=== PATIENT | female | born 1990 | race Caucasian/White ===

== ENCOUNTER 2019-08-19 10:09 | Outpatient (REF) | payer BC, SELFPAY ==
--- NOTE | 2019-08-19 08:45 | PAPFT_PTH ---
PATIENT: Betzy Levy LOC: [facility] U#:[id number] AGE/SX: 28/F ROOM: RE08/19/[address]: Jessica Carter : 1990 BED: DIS: 08/19/2019 SPEC #: [id number] RECD: 08/20/19 12:48 STATUS: CELINE RENellie #: [id number] IZA: 08/19/19 08:[address]: Jessica Carter DEPT: [facility] Cytology RECD BY: Amy Waters Tissues: 1 - CX/ENDOCX FOR PAP SMEARS Procedures: PAP THIN PREP/[facility] Screening Comments: [id number] (CHLAMYDIA/GC)
[2019-08-19 12:11] LABS: Anion Gap 7.9 mmol/L (3-11); BUN 13 mg/dL (7-18); CO2 27.1 mmol/L (21.0-32.0); CREATININE 0.58 mg/dL (0.55-1.02); Calcium 8.8 mg/dL (8.5-10.1); Chloride 105 mmol/L (98-107); Glucose 80 mg/dL (74-106); HCT 38.5 % (36.0-46.0); HGB 12.9 g/dL (12.0-15.5); Mean Corp. HGB Concentration 33.5 g/dL (32.0-36.0); Mean Corpuscular Hemoglobin 30.1 pg (27.0-33.0); Mean Corpuscular Volume 89.7 fL (80-95); Mean Platelet Volume 11.3 fL (8.0-11.0); Platelet Count 256 x1000/uL (130-400); RBC 4.29 m/cumm (4.00-5.20); RBC Distribution Width 12.8 % (11.7-14.6); Sodium 140 mmol/L (136-145)
[2019-08-23 13:15] LABS: Chlamydia Result Negative (Negative); GC Result Negative (Negative)
== END 2019-08-19 10:29 ==
LOC: NCHCN 10:09
PROVIDERS: PCP Nurse Practitioner Family; Visit Provider Nurse Practitioner Family
DX: Z00.00 Encounter for general adult medical examination without abnormal findings (principal); Z13.228 Encounter for screening for other metabolic disorders; R23.3 Spontaneous ecchymoses; Z11.3 Encounter for screening for infections with a predominantly sexual mode of transmission; Z12.4 Encounter for screening for malignant neoplasm of cervix; Z01.419 Encounter for gynecological examination (general) (routine) without abnormal findings
CPT/HCPCS: 80048; 85027; 87491; 87591; 88142

== ENCOUNTER 2020-12-13 17:51 | Outpatient (REF) | payer MEDICAID, SELFPAY ==
[2020-12-15 09:36] LABS: Hepatitis B Surface Ag Negative (Negative)
[2020-12-15 10:08] LABS: HIV-1/2 Ag & Ab Screen Negative (Negative)
[2020-12-15 10:18] LABS: Hepatitis C Ab w Rflx HCV PCR Negative (Negative)
[2020-12-15 10:44] LABS: Syphilis Serology (RPR) Negative (Negative)
[2020-12-15 14:54] LABS: Chlamydia Result Negative (Negative); GC Result Negative (Negative)
[2020-12-15 22:03] LABS: HBc IgM Ab, S Negative (Negative)
== END 2020-12-13 17:52 | disposition home or self-care (01) ==
LOC: NCHCN 17:51
PROVIDERS: PCP Nurse Practitioner Family; Visit Provider Nurse Practitioner Family
DX: Z00.00 Encounter for general adult medical examination without abnormal findings (principal); Z11.3 Encounter for screening for infections with a predominantly sexual mode of transmission; Z11.4 Encounter for screening for human immunodeficiency virus [HIV]; Z11.59 Encounter for screening for other viral diseases
CPT/HCPCS: 86803; 87340; 87389; 87491; 87591; 86592; 86705; 87480; 87510; 87660

== ENCOUNTER 2021-09-18 17:25 | Outpatient (REF) | payer MEDICAID, SELFPAY ==
[2021-09-19 11:11] LABS: Syphilis Serology (RPR) Negative (Negative)
[2021-09-19 11:16] LABS: HIV-1/2 Ag & Ab Screen Negative (Negative)
[2021-09-19 11:33] LABS: Hepatitis C Ab w Rflx HCV PCR Negative (Negative)
== END 2021-09-18 17:26 | disposition home or self-care (01) ==
LOC: NCHCN 17:25
PROVIDERS: PCP Nurse Practitioner Family; Visit Provider Nurse Practitioner Family
DX: Z11.3 Encounter for screening for infections with a predominantly sexual mode of transmission (principal); Z11.4 Encounter for screening for human immunodeficiency virus [HIV]; Z11.59 Encounter for screening for other viral diseases
CPT/HCPCS: 86803; 87389; 86592